=== PATIENT | male | born 1970 | race African-American/Black ===

== ENCOUNTER 2018-04-05 15:12 | Inpatient (IN) | payer SELFPAY ==
[~2018-04-05] VITALS: Ht 170.2 cm; Wt 83.3 kg
[2018-04-05 15:25] VITALS: Ht 170.2 cm; Wt 83.3 kg
[2018-04-05 16:42] LABS: CALCIUM 9.6 mg/dL (8.5-10.1); CARBON DIOXIDE 25.5 mmol/L (21-32); CHLORIDE SERUM 104 mmol/L (98-107); GFR1 > 60 mL/min; GLUCOSE SERUM 106 mg/dL (74-106); POTASSIUM SERUM 3.5 mmol/L (3.5-5.1); SODIUM SERUM 139 mmol/L (136-145)
[2018-04-05 16:47] LABS: ALKALINE PHOSPHATASE 67 U/L (46-116); ALT/SGPT 55 U/L (16-63); AST/SGOT 31 U/L (15-37); BASOPHIL % 0.1 % (0-2); PLATELET COUNT 323 x10^3mcL (130-400); RED CELL DISTRIBUTION WIDTH 15.4 % (11.5-14.5)
[2018-04-05 16:48] LABS: TOTAL PROTEIN, SERUM 8.4 g/dL (6.4-8.2)
[2018-04-05 20:23] LABS: T3 TOTAL 1.2 ng/mL
[2018-04-05] MEDS ORDERED: LISINOPRIL10 MG PO (20:26)
[2018-04-05 20:32] LABS: MAGNESIUM 2.1 mg/dL (1.8-2.4); PHOSPHOROUS 2.3 mg/dL (2.5-4.9)
[2018-04-05 20:43] LABS: FREE T4 1.16 ng/dL (0.76-1.46); FREE THYROXINE INDEX 3.1 ug/dL (1.4-4.5); T4(THYROXINE) 8.1 ug/dL (4.7-13.3)
[2018-04-05 21:42] VITALS: BP 129/71
[2018-04-06 05:17] VITALS: BP 129/80
[2018-04-06 06:25] LABS: CALCIUM 9.2 mg/dL (8.5-10.1); CHLORIDE SERUM 104 mmol/L (98-107); CREATININE SERUM 0.9 mg/dL (0.7-1.3); GFR1 > 60 mL/min; GLUCOSE SERUM 98 mg/dL (74-106); MAGNESIUM 2.2 mg/dL (1.8-2.4); PHOSPHOROUS 3.4 mg/dL (2.5-4.9); POTASSIUM SERUM 3.3 mmol/L (3.5-5.1); SODIUM SERUM 136 mmol/L (136-145)
[2018-04-06 06:28] LABS: BASOPHIL % 0.2 % (0-2); PLATELET COUNT 311 x10^3mcL (130-400)
[2018-04-06 07:10] LABS: RED CELL DISTRIBUTION WIDTH 15.8 % (11.5-14.5)
[2018-04-06 08:28] VITALS: BP 133/87
[2018-04-06 09:10] LABS: microscopic required? NO
[2018-04-06 09:56] LABS: UA SPECIFIC GRAVITY 1.025 (1.005-1.035); urine erythrocyte NEGATIVE (NEGATIVE)
[2018-04-06 10:00] LABS: AMPHETAMINE QUAL UR NONE DETECTED (See below)
[2018-04-06 12:06] VITALS: BP 117/76
[2018-04-06 18:16] VITALS: BP 111/76
[2018-04-06 21:24] VITALS: BP 111/81
[2018-04-07 07:17] LABS: CALCIUM 8.8 mg/dL (8.5-10.1); CARBON DIOXIDE 25.1 mmol/L (21-32); CHLORIDE SERUM 109 mmol/L (98-107); CREATININE SERUM 0.9 mg/dL (0.7-1.3); GFR1 > 60 mL/min; GLUCOSE SERUM 108 mg/dL (74-106); MAGNESIUM 2.1 mg/dL (1.8-2.4); PHOSPHOROUS 3.4 mg/dL (2.5-4.9); POTASSIUM SERUM 3.6 mmol/L (3.5-5.1); SODIUM SERUM 144 mmol/L (136-145)
[2018-04-07 07:19] LABS: BASOPHIL % 0.6 % (0-2); PLATELET COUNT 300 x10^3mcL (130-400)
[2018-04-07 07:23] LABS: RED CELL DISTRIBUTION WIDTH 15.9 % (11.5-14.5)
[2018-04-07 09:03] VITALS: BP 116/64
[2018-04-07 12:59] VITALS: BP 116/64
[2018-04-07] MEDS ORDERED: DILTIAZEM30 M1 PO (13:57)
[2018-04-07] MEDS ORDERED: ECO81 PO (13:58)
== END 2018-04-07 15:10 | disposition home or self-care (01) | DRG 917 ==
LOC: ED 15:12 → DU 19:28
PROVIDERS: Emergency Medicine; Internal Medicine
DX: T40.5X2A Poisoning by cocaine, intentional self-harm, initial encounter (principal); G92 Toxic encephalopathy; I10 Essential (primary) hypertension; I48.91 Unspecified atrial fibrillation; R73.03 Prediabetes; F41.0 Panic disorder [episodic paroxysmal anxiety]; F19.10 Other psychoactive substance abuse, uncomplicated; Y92.89 Other specified places as the place of occurrence of the external cause
CPT/HCPCS: 84439; G0480; J2060; J3490